=== PATIENT | male | born 1950 | race Caucasian/White ===

== ENCOUNTER 2020-08-04 | Outpatient (REF) | payer MEDICARE, SELFPAY ==
[2020-08-08 10:03] LABS: FIT Date 1 111620; FIT Date 2 111620; FIT1 NEGATIVE (NEGATIVE); FIT2 NEGATIVE (NEGATIVE)
[2020-08-08 10:04] LABS: FIT Int Ctl YES
== END 2020-08-04 00:01 | disposition home or self-care (01) ==
LOC: HO.LNP
PROVIDERS: Visit Provider Internal Medicine Gastroenterology
DX: Z12.11 Encounter for screening for malignant neoplasm of colon (principal)
CPT/HCPCS: 82274

== ENCOUNTER 2020-08-07 15:16 | Outpatient (REF) | payer MEDICARE, SELFPAY | END 2020-08-07 15:17 | disposition home or self-care (01) | LOC: HO.LNP 15:16 | PROVIDERS: Visit Provider Internal Medicine Gastroenterology | DX: Z13.89 Encounter for screening for other disorder (principal) ==